=== PATIENT | male | born 1940 | race Caucasian/White ===

== ENCOUNTER 2018-05-26 08:13 | Emergency (ER) | payer MEDICARE ==
[~2018-05-26] VITALS: Ht 165.1 cm; Wt 75.0 kg
[2018-05-26 08:23] VITALS: Ht 165.1 cm; Wt 75.0 kg
[2018-05-26 09:18] LABS: ALBUMIN 3.6 g/dL (3.4-5.0); ALKALINE PHOSPHATASE 82 U/L (46-116); ALT (SGPT) 26 U/L (10-68); BILIRUBIN - TOTAL 0.71 mg/dL (0.2-1.3); CALC OSMOLALITY 284 mosm/kg (275-300); CARBON DIOXIDE 26.9 mmol/L (21.0-32.0); CHLORIDE - SERUM 106 mmol/L (98-107); CREATINE KINASE 54 UL (21-232); CREATININE - SERUM 1.2 mg/dL (0.6-1.3); GLUCOSE 97 mg/dL (74-106); INR 1.07 (0.85-1.17); MAGNESIUM - SERUM 2.1 mg/dL (1.8-2.4); POTASSIUM - SERUM 3.7 mmol/L (3.5-5.1); PROTEIN - SERUM 7.5 g/dL (6.4-8.2); PROTIME 13.4 SECONDS (11.6-15.0); SODIUM 142 mmol/L (136-145); UREA NITROGEN 18 mg/dL (7-18); eGFR NON AFRICAN AMERICAN 63 mL/min (90-120)
[2018-05-26 09:19] LABS: APTT 27.8 SECONDS (22.8-39.4)
[2018-05-26 09:44] LABS: CKMB 1.8 U/L (0.0-3.6); TROPONIN-I < 0.017 ng/mL (0.000-0.060)
[2018-05-26 09:59] LABS: BASOPHILS 0.6 % (0-2); EOSINOPHILS 3.6 % (0-7); HEMATOCRIT 48.5 % (42.0-54.0); HEMOGLOBIN 16.6 g/dL (13.5-17.5); IMMATURE GRANULOCYTES 0.5 % (0-5); LYMPHOCYTES 26.3 % (15-50); MCH 31.2 pg (26.0-34.0); MCHC 34.2 g/dL (31.0-37.0); MCV 91.2 fL (80.0-100.0); MEAN PLATELET VOLUME 9.4 fL (7.4-10.4); MONOCYTES 6.3 % (2-11); NEUTROPHILS 62.7 % (40-80); PLATELET COUNT 235 10x3/uL (130-400); RBC 5.32 10x6/uL (4.20-6.10); RDW 13.4 % (11.5-14.5); WBC 6.4 10x3/uL (4.8-10.8)
[2018-05-26 10:57] VITALS: BP 136/67
== END 2018-05-26 10:44 | disposition home or self-care (01) ==
LOC: D.ER 08:13
PROVIDERS: Emergency Medicine
DX: R07.9 Chest pain, unspecified (principal)

== ENCOUNTER 2018-06-04 08:35 | Outpatient (CLI) | payer MEDICARE, OTHER ==
[~2018-06-04] VITALS: Ht 165.1 cm; Wt 75.0 kg
--- NOTE | ~2018-06-04 | HEMODYNAMI ---
PATIENT:CLAU SALEH MEDICAL RECORD: [id number] : 42 LOCATION:[facility] ADMISSION DATE: 06/04/18 Generatedon:06/04/201811:01 Patient name: CLAU SALEH Patient #: [id number] SSN: : [id number] Date of study: 06/04/2018 Page: Of Hemodynamic Procedure Report Patient Data Patient Demographics Procedure consent was obtained First Name: CLAU Gender: Male Last Name: DELFINO Suffix: Jr Olimpia Initial: SEVERO : 1940 Patient #: [id number] Age: 77 year(s) Race: Unknown Additional ID: [id number] Contact details Address: [place] [address] State: [place] City: [place] Zip code: [address] Past Medical History Allergies: No known allergies Admission Admission Data Admission Date: 06/04/2018 Admission Time: 8:35 Procedure Procedure Types Cath Procedure Diagnostic Procedure LHC LHC w/Coronaries FFR/IVUS Intra-Coronary IVUS Initial PCI Procedure Coronary Stent Coronary Stent Initial x2 Peripheral Cath Diagnostic Procedure Desk Pens Assembler Peripheral Procedures Four Vessel Arteriogram Procedure Description Procedure Date Procedure Date: 06/04/2018 Procedure Start Time: 10:38 Procedure End Time: 10:57 Procedure Staff Name Function Liborio Latham MD Performing Physician Everette Whyte RT Monitor Hilary Dickinson RT Scrub David Egan RN Nurse Procedure Data Cath Procedure Fluoroscopy Diagnostic fluoroscopy Total fluoroscopy Time: 4.7 time: 4.7 min min Diagnostic fluoroscopy Total fluoroscopy dose: 651 dose: 651 mGy mGy Contrast Material Contrast Material Type Amount (ml) Isovue 300 0 Isovue 370 114 Entry Location Entry Primary Successful Side Size Upsize Upsize Entry Closure Succes sful Closure Location (Fr) 1 (Fr) 2 (Fr) Remarks Device Remarks Femoral Right 5 Fr 6 Fr Exoseal artery Short Diagnostic catheters Device Type Used For End Catheter Placement MULTIPACK Pigtail 5 Fr LV Angiography catheter MULTIPACK JL 4.0 5Fr Left Coronary catheter Angiography MULTIPACK 3DRC 5Fr Right Coronary catheter Angiography Procedure Complications No complications Procedure Medications Medication Administration Route Dosage 0.9% NaCl I.V. 100 ml/hr Oxygen etCO2 Nasal cannula 2 l/min Heparin Flush Bag added to field 2 bags (1000units/500ml NS) Lidocaine 2% added to field 20 Versed I.V. 1 mg Fentanyl I.V. 50 mcg Heparin Bolus I.V. 4000 units Integrilin (Bolus I.V. 6.8 ml 2mg/ml) Integrilin (Bolus wasted 3.2 ml 2mg/ml) Plavix P.O. 600 mg Hemodynamics Rest Heart Rate: 51 (bpm) Snapshots Pre Cath Intra NCS Post Cath Vital Signs Time Heart Resp SPO2 etCO2 NIBP (mmHg) Rhythm Pain Sedation Rate (ipm) (%) (mmHg) Status Level (bpm) 10:19:29 51 12 99 0 130/70(116) NSR 0 (11) 10(A) , No pain 10:23:45 49 12 96 36.7 113/64(88) NSR 0 (11) 10(A) , No pain 10:27:59 48 11 96 0 102/60(81) NSR 0 (11) 10(A) , No pain 10:32:09 48 11 96 2.9 111/61(78) NSR 0 (11) 10(A) , No pain 10:36:23 45 14 96 0 104/60(84) NSR 0 (11) 10(A) , No pain 10:40:33 46 12 97 33.7 101/61(80) NSR 0 (11) 9(A) , No pain 10:44:41 47 12 96 30.7 113/61(77) NSR 0 (11) 9(A) , No pain 10:48:49 48 11 96 16.4 106/58(78) NSR 0 (11) 10(A) , No pain 10:52:57 54 12 97 17.9 123/72(98) NSR 0 (11) 10(A) , No pain 10:57:08 57 12 97 22.4 121/70(95) NSR 0 (11) 10(A) , No pain Medications Time Medication Route Dose Verified Delivered Reason Notes Effectiveness by by 10:20:49 0.9% NaCl I.V. 100 David David Per physician ml/hr Jignesh Egan RN RN 10:21:03 Oxygen etCO2 2 David David for low 02 sats Nasal l/min Jignesh Egan cannula RN RN 10:22:08 Heparin Flush added 2 David David used for Bag to bags Jignesh Egan procedure (1000units/500ml field RN RN NS) 10:22:17 Lidocaine 2% added 20ml David David for local to vial Jignesh Egan anesthetic field RN RN 10:36:28 Versed I.V. 1 mg David David for sedation Jignesh Egan RN RN 10:36:40 Fentanyl I.V. 50 David David for sedation mcg Jignesh Egan RN RN 10:46:54 Heparin Bolus I.V. 4000 David David for units Jignesh Egan anticoagulation RN RN 10:47:09 Integrilin I.V. 6.8 David David for (Bolus 2mg/ml) ml Jignesh Egan antiplatelet RN RN therapy 10:47:18 Integrilin wasted 3.2ml David David to sharp's (Bolus 2mg/ml) Jignesh Egan RN RN 10:56:24 Plavix P.O. 600 David David for mg Jignesh Egan antiplatelet RN RN therapy Procedure Log Time Note 10:02:25 Everette MILLS(R) sent for patient. Start room use. 10:02:26 Time tracking: Regular hours (M-F 7:00 - 5:00) 10:02:30 Plan of Care:Hemodynamics will remain stable., Cardiac rhythm will remain stable., Comfort level will be maintained., Respiratory function will remain adequate., Patient/ family verbilizes understanding of procedure., Procedure tolerated without complication., Recovers from procedure without complications.. 10:14:47 Patient received from Pre/Post Procedure Room to CCL 1 Alert and oriented. Tansferred to table in Supine position. 10:14:49 Warm blankets applied, and judi hugger turned on for patient comfort. 10:14:49 Correct patient and procedure confirmed by team. 10:14:50 Signed procedure consent form obtained from patient. 10:14:52 ECG and BP/O2 sat monitors applied to patient. 10:18:27 Baseline sample Acquired. 10:18:27 Vital chart was started 10:18:34 Rhythm: sinus rhythm 10:18:35 Baseline sample Acquired. 10:18:39 Full Disclosure recording started 10:18:55 H&P Date Dictated: 05/27/2018 Within 30 days and on chart., H&P Addendum completed by physician on day of procedure. (MUST COMPLETE FOR ALL OUTPATIENTS). 10:18:55 Pre-procedure instructions explained to patient. 10:18:56 Pre-op teaching completed and patient verbalized understanding. 10:18:57 Family in waiting room. 10:18:59 Patient NPO since Midnight. 10:19:07 Patient allergic to No known allergies 10:19:10 Is the patient allergic to Iodine/contrast media? No. 10:19:13 Was the patient premedicated? No 10:19:15 Patient diabetic? No. 10:19:16 ----Pre-sedation anethsthesia assessment.---- 10:19:18 Previous problem with sedation/anesthesia? No ? 10:19:20 Snore? Yes 10:19:21 Sleep apnea? No 10:20:07 Deviated septum? No 10:20:09 Opens mouth fully? Yes 10:20:11 Sticks out tongue? Yes 10:20:20 Dentures? Yes out at home 10:20:21 Airway obstruction? No ? 10:20:26 Pre procedure: right dorsailis pedis pulse 2+ Normal; easily identifiable; not easily obliterated 10:20:30 Patient pain scale 0/10 ?. 10:20:34 IV patent on arrival in left antecubital with 0.9% NaCl at 10ml/hr. 10:20:49 0.9% NaCl 100 ml/hr I.V. was administered by David Egan RN; Per physician; 10:20:49 Lab results completed and on chart. 10:20:52 Right groin area was prepped with chlora-prep and draped in sterile fashion 10:20:53 Alarms reviewed by R. N. 10:20:53 Sharps counted by scrub and verified by R.N. 10:21:03 Oxygen 2 l/min etCO2 Nasal cannula was administered by David Egan RN; for low 02 sats; 10:22:08 Heparin Flush Bag (1000units/500ml NS) 2 bags added to field was administered by David Egan RN; used for procedure; 10:22:17 Lidocaine 2% 20ml vial added to field was administered by David Egan RN; for local anesthetic; 10:26:08 Physician paged 10:26:15 Use device set Femoral Dx 10:26:16 ACIST Syringe (81606) opened to sterile field. 10:26:17 Bag Decanter (2002S) opened to sterile field. 10:26:17 Medline Cath Pack ([id number]) opened to sterile field. 10:26:17 DIAGNOSTIC WIRE .035 260cm J wire (603521) opened to sterile field. 10:26:19 ACIST Hand Control (83013) opened to sterile field. 10:26:19 ACIST Manifold (73703) opened to sterile field. 10:26:19 DIAGNOSTIC Multipack 5Fr catheter set (FX8626) opened to sterile field. 10:26:20 Tegaderm 4 x 4 (1626W) opened to sterile field. 10:26:22 SHEATH 5FR [place] (XQX495) opened to sterile field. 10:30:50 Baseline sample Acquired. 10:35:32 Zero performed for pressure channel P1 10:36:05 Physician arrived 10:36:06 --------ALL STOP TIME OUT------ 10:36:06 Final Timeout: patient, procedure, and site verified with staff and physician. All members of the team are in agreement. 10:36:08 Right groin site verified by team. 10:36:11 Maximum allowable Isovue 300 dose 300ml. Physician notified. (300ml for normal creatinines. For patients with creatinine of 1.7 or higher multiply weight(kg) x 5 divided by creatinine.) 10:36:15 Fire Safety Assessment: A--An alcohol-based skin anteseptic being used preoperatively., C--Open oxygen or nitrous oxide is being used., D--An ESU, laser, or fiber-optic light is being used. 10:36:19 Physical assessment completed. ASA score P 2 - A patient with mild systemic disease as per Liborio Latham MD. 10:36:22 Sedation plan: IV Moderate Sedation Medication:Versed, Fentanyl 10:36:28 Versed 1 mg I.V. was administered by David Egan RN; for sedation; 10:36:40 Fentanyl 50 mcg I.V. was administered by David Egan RN; for sedation; 10:38:04 Procedure started. 10:38:11 Local anesthetic to right femoral artery with Lidocaine 2% by Liborio Latham MD.INITIAL ACCESS ONLY 10:38:18 A 5 Fr sheath was inserted into the Right Femoral artery 10:39:20 A MULTIPACK Pigtail 5 Fr catheter was advanced over the wire and used for LV Angiography. 10:39:24 LV angiography performed. 10:39:25 LV gram done using ANDERSON 10:40:05 EF : 55 % 10:40:08 Catheter removed. 10:40:15 A MULTIPACK JL 4.0 5Fr catheter was advanced over the wire and used for Left Coronary Angiography. 10:40:18 LCA angiography performed. 10:41:19 Catheter removed. 10:41:25 A MULTIPACK 3DRC 5Fr catheter was advanced over the wire and used for Right Coronary Angiography. 10:41:41 Procedure type changed to Cath procedure, Diagnostic procedure, LHC, LHC w/Coronaries, FFR/IVUS, Intra-Coronary IVUS Initial, PCI procedure, Coronary Stent, Coronary Stent Initial x2, Peripheral Cath Diagnostic Procedure, Desk Pens Assembler Peripheral Procedures, Four Vessel Arteriogram 10:41:46 RCA angiography performed. 10:41:54 Left carotid angiography performed. 10:41:56 Left subclavian angiography performed 10:41:58 Right carotid angiography performed. 10:41:59 Right subclavian angiography performed 10:42:38 Catheter removed. 10:46:54 Heparin Bolus 4000 units I.V. was administered by David Egan RN; for anticoagulation; 10:47:09 Integrilin (Bolus 2mg/ml) 6.8 ml I.V. was administered by David Egan RN; for antiplatelet therapy; 10:47:18 Integrilin (Bolus 2mg/ml) 3.2ml wasted was administered by David Egan RN; to sharp's; 10:47:32 GUIDE 6FR XBLAD 3.5 catheter ([id number]) opened to sterile field. 10:47:32 CHOICE PT Extra Support 182cm wire ([id number]) opened to sterile field. 10:47:33 INFLATOR Merit BasixCompak (MR9984) opened to sterile field. 10:47:34 [place] IVUS Catheter (64752M) opened to sterile field. 10:47:34 SHEATH 6FR [place] (AQN997) opened to sterile field. 10:47:47 Sheath upsized to a 6 Fr Short. 10:47:55 6 Fr XBLAD 3.5 guide catheter was inserted over the wire 10:47:59 CPTES wire advanced. 10:48:02 FFR/IVUS 10:48:03 IVUS catheter advanced over wire. 10:48:04 IVUS pass to LMCA lesion performed. 10:52:21 IVUS catheter removed over wire. 10:53:16 Place stent Inflation Number: 1 A LISA RX 3.0 x 18 stent ([id number]) was prepped and advanced across the Prox LAD. The stent was deployed at 17 LETITIA for 0:10 (min:sec). 10:53:26 Stent catheter was removed intact over wire. 10:53:56 Place stent Inflation Number: 1 A LISA RX 4.0 x 12 stent ([id number]) was prepped and advanced across the LMCA. The stent was deployed at 15 LETITIA for 0:12 (min:sec). 10:55:02 Stent catheter was removed intact over wire. 10:55:02 Wire removed. 10:55:05 Guide catheter removed. 10:55:28 Contrast amount:Isovue 300 0ml. 10:55:31 Contrast amount:Isovue 370 114ml. 10:55:38 Sheath removed intact; hemostasis achieved with Exoseal to the Right Femoral artery. 10:55:48 EXOSEAL 6Fr (EX600) opened to sterile field. 10:55:51 Procedure ended.(Physican Out) 10:56:04 Fluoroscopy time 04.70 minutes. 10:56:10 Fluoroscopy dose: 651 mGy 10:56:10 Flurop Dose total: 651 10:56:12 Sharps counted by scrub and verified by R.N. 10:56:13 Insertion/operative site no bleeding no hematoma. 10:56:15 Post-op/insertion site Right Femoral artery dressed using a 4 x 4 and Tegaderm. 10:56:19 Post right femoral artery:stable 10:56:20 Post Procedure Pulses reassessed and unchanged 10:56:22 Post procedure: right dorsailis pedis pulse 1+ Palpable, but thready & weak; easily obliterated. 10:56:24 Plavix 600 mg P.O. was administered by David Egan RN; for antiplatelet therapy; 10:56:25 Post procedure rhythm: sinus rhythm 10:56:26 Post procedure instruction explained to patient.Patient verbalizes understanding. 10:56:27 Procedure and supply charges have been captured, reviewed, submitted and are correct. 10:56:58 Procedure Complication : No complications 10:57:00 Vital chart was stopped 10:57:01 See physician's report for complete and final results. 10:57:03 Report given to Pre/Post Procedure Room. 10:57:06 Patient transfered to Pre/Post Procedure Room with Stretcher. 10:57:08 Procedure ended. 10:57:08 Full Disclosure recording stopped 10:57:14 ACC-PCI Only Patient was given prescriptions, or instructed by Liborio Latham MD to start/continue the following medications upon discharge: Plavix 10:57:15 End room use (Document Last) Intervention Summary Intervention Notes Time ActionType Lesion and Equipment Used Action# Pressure Duration Attributes 10:53:16 Place stent Prox LAD LISA RX 3.0 x 1 17 00:10 18 stent ([id number]) 10:53:56 Place stent LMCA LISA RX 4.0 x 1 15 00:13 12 stent ([id number]) Device Usage Item Name Manufacture Quantity Catalog Number Hospital Part Current M inimal Lot# / Charge Number Stock Stock Serial# Code ACIST Syringe Acist 1 25722 440230 118805 022084 2 0 (60005) Medical Systems Inc Bag Decanter Microtek 1 385024 54563 004359 5 () Medical Inc. Medline Cath Medline 1 [id number] 665876 11738 151697 5 Pack ([id number]) DIAGNOSTIC St Dave 1 688530 948398 623343 151131 3 0 WIRE .035 260cm J wire (890113) ACIST Hand Acist 1 09074 127671 075287 091909 5 Control Medical (59169) Systems Inc ACIST Manifold Acist 1 61857 534617 090532 776109 5 (40160) Medical Systems Inc DIAGNOSTIC Cardinal 1 LY6498 425041 79559 729097 3 0 Multipack 5Fr Health catheter set (TZ5936) Tegaderm 4 x 4 3M 1 1626W 224245 333268 882316 5 (1626W) SHEATH 5FR Terumo 1 LHB529 990916 631363 722551 5 [place] (UTB174) MULTIPACK Cardinal 1 629079 5 Pigtail 5 Fr Health catheter MULTIPACK JL Cardinal 1 366220 5 4.0 5Fr Health catheter MULTIPACK 3DRC Cardinal 1 286782 5 5Fr catheter Health GUIDE 6FR Cardinal 1 [id number] 260344 787729 849835 1 0 XBLAD 3.5 Health catheter ([id number]) CHOICE PT [place] 1 [id number] 916660 388477 150749 5 Extra Support Scientific 182cm wire ([id number]) INFLATOR Merit Merit 1 ZE0772 450492 837752 610795 1 5 [facility] (GP9946) [place] 1 12558R 273390 811866 025913 8 [place] IVUS Catheter (70627J) SHEATH 6FR Terumo 1 EKR476 376052 606220 176511 4 0 [place] (KJF530) LISA RX 3.0 x Medtronic 1 [id number] 422569 0652210 878898 5 [id number] 18 stent ([id number]) LISA RX 4.0 x Medtronic 1 [id number] 179757 6614158 252726 5 [id number] 12 stent ([id number]) EXOSEAL 6Fr Cardinal 1 EX600 567080 290472 814400 1 0 (EX600) Health Signature Audit [place] Stage Time Signature Unsigned Intra-Procedure 06/04/2018 Everette Whyte RT(R) 11:01:35 AM Signatures Monitor : Everette Whyte RT Signature : Date : Time : [facility] [address] [place] [address]
[2018-06-04 09:03] VITALS: BP 134/62; Ht 165.1 cm; Wt 75.0 kg
[2018-06-04 09:07] LABS: HEMATOCRIT 49.3 % (42.0-54.0); MCH 31.4 pg (26.0-34.0); MCHC 34.5 g/dL (31.0-37.0); MEAN PLATELET VOLUME 8.6 fL (7.4-10.4); NEUTROPHILS 66.2 % (40-80); PLATELET COUNT 190 10x3/uL (130-400); RBC 5.42 10x6/uL (4.20-6.10); RDW 13.6 % (11.5-14.5); WBC 6.6 10x3/uL (4.8-10.8)
[2018-06-04 09:14] LABS: ANION GAP 12.4 mmol/L (8-16); CALCIUM 8.6 mg/dL (8.5-10.1); CARBON DIOXIDE 24.9 mmol/L (21.0-32.0); CREATININE - SERUM 1.2 mg/dL (0.6-1.3); POTASSIUM - SERUM 4.3 mmol/L (3.5-5.1)
[2018-06-04] MEDS ORDERED: PLAVIX75 MG PO (11:17)
[2018-06-04] MEDS ORDERED: BAYER CHEWABLE81 MG PO (11:17)
--- NOTE | 2018-06-04 11:20 | NUR ---
RECIEVED TO ROOM VIA STRETCHER FROM FITTER UP WITH 6 FR EXOSEAL R/GROIN CDI NO BLEEDING OR HEMATOMA NOTED. PATIENT CONNECTED TO MONITOR FOR OBSERVATION WITH HR 51 BP 125/65. CHEST PAIN IS DENIED INSTRUCTED PATIENT TO KEEP HEAD FLAT ON PILLOW WITH RLE STRAIGHT
--- NOTE | 2018-06-04 11:28 | NUR ---
PATIENT RESTING QUIETLY NO DISTRESS 6 FR EXOSEAL R/GROIN IS CDI WITH NO BLEEDING OR HEMATOMA NOTED. VSS
--- NOTE | 2018-06-04 11:46 | NUR ---
PATIENT CONTINUES TO REST WITH EYES CLOSED. RESPIRATIONS ARE EVEN AND UNLABORED. 6 FR EXOSEAL R/GROIN REMAINS CDI
--- NOTE | 2018-06-04 11:58 | NUR ---
DR BEASLEY AT BEDSIDE WITH PATIENT
--- NOTE | 2018-06-04 12:21 | NUR ---
6 FR EXOSEAL R/GROIN REMAINS CDI WITH CHEST PAIN DENIED. VSS
--- NOTE | 2018-06-04 13:06 | NUR ---
PATIENT ALERT AND ORIENTED WITH CHEST PAIN DENIED 6 FR EXOSEAL R/GROIN IS CDI NO BLEEDING OR HEMATOMA NOTED. PATIENT VOIDS 400 CC CLEAR YELLOW URINE TO COLLECTION
--- NOTE | 2018-06-04 13:26 | NUR ---
PATIENT TOLERATING SIPS OF PO FLUIDS WITH NAUSEA DENIED
--- NOTE | 2018-06-04 14:03 | NUR ---
RIGHT GROIN DRESSING C/D/I. NO S/S OF HEMATOMA NOTED. RIGHT PEDAL PULSE PRESENT. HEAD OF BED INC TO 30 DEGREES. TOLERATED WELL. NO OTHER NEEDS AT THIS TIME.
--- NOTE | 2018-06-04 14:30 | NUR ---
LEFT ARM PIV D/C'D WITH CATH TIP INTACT. PT TOLERATED WELL. INSTRUCTED TO GET UP AND DRESSED. PT'S AT BEDSIDE TO ASSIST. RIGHT GROIN DRESSING C/D/I. NO S/S OF HEMATOMA NOTED.
--- NOTE | 2018-06-04 14:45 | NUR ---
DISCUSSED DISCHARGE INSTRUCTIONS WITH PT AND PT'S FAMILY. THEY VOICED UNDERSTANDING. DR. BEASLEY SPOKE WITH PT AND PT'S FAMILY AGAIN. RIGHT GROIN DRESSING C/D/I. NO S/S OF HEMATOMA NOTED.
--- NOTE | 2018-06-04 14:51 | NUR ---
PT VOIDED IN URINAL PRIOR TO DISCHARGE. TAKEN OUT TO VEHICLE BY WHEELCHAIR. NO S/S OF DISTRESS NOTED. ALL BELONGINGS AND PAPERWORK IN HAND.
--- NOTE | 2018-06-04 15:13 | OP ---
PATIENT NAME: CLAU SALEH MEDICAL RECORD: [id number] :41 LOCATION:D.CAT ADMISSION DATE: SURGEON: JUSTO BEASLEY MD DATE OF OPERATION: 06/04/2018 PROCEDURES: 1. PTCA stent left main. 2. PTCA stent LAD. 3. Intravascular ultrasound of left main. 4. Intravascular ultrasound of the LAD. 5. Left heart catheterization. 6. Selective coronary angiography. 7. Left ventriculogram. 8. Four-vessel carotid vertebral angiography. INDICATION: Syncope, angina, and coronary artery disease. PROCEDURE IN DETAIL: After informed consent was obtained and after a detailed description of risks, benefits as well as alternative therapies, the patient elected to proceed with angiogram and angioplasty. The right femoral area was prepped and draped in normal sterile fashion. Right femoral artery was cannulated via modified Seldinger technique with placement of 6-Georgian sheath. All catheters exchanged through this sheath. FINDINGS: There was subselection of each subclavian as well as the left carotid. RIGHT SIDE: The common internal and external carotids as well as vertebral have mild irregularities, but no flow-limiting stenosis. LEFT SYSTEM: The common internal and external carotid as well as vertebral have mild irregularities, but no flow-limiting stenosis. Left ventriculogram was performed in standard 30-degree ANDERSON view, reveals good cardiac wall motion throughout all segments. Overall ejection fraction estimated 60%. SELECTIVE CORONARY ANGIOGRAPHY: 1. Left main is with greater than 80% stenosis confirmed by intravascular ultrasound. 2. Left anterior descending has 80% stenosis in the proximal vessel. 3. The left circumflex has moderate irregularities, but no flow-limiting stenosis. 4. Right coronary artery has moderate irregularities, but no flow-limiting stenosis. PTCA STENT OF THE LAD AND LEFT MAIN: The LAD was addressed with a 3.0 x 18 mm Jluis and the left main with a 4.0 x 12 mm Enid. Result was 0% residual stenosis. OVERALL IMPRESSION: Successful percutaneous transluminal coronary angioplasty stent of the left main and left anterior descending, both going from 80% initial stenosis to 0% residual. TRANSINT:[id number] Voice Confirmation ID: [id number] DOCUMENT ID: [id number] OPERATIVE REPORT [id number] CLAU SALEH JUSTO BEASLEY MD at 9699 CC: [id number] DICTATION DATE: 06/04/18 1059 MANUFACTURING TECHNOLOGIST: 06/04/18 1228 DEP CLI 06/04/18 [place] [id number] [place] [id number]
== END 2018-06-04 14:50 | disposition home or self-care (01) ==
LOC: D.CATH 08:35
PROVIDERS: ATTEND Internal Medicine Interventional Cardiology
DX: I25.119 Atherosclerotic heart disease of native coronary artery with unspecified angina pectoris (principal); R55 Syncope and collapse; Z01.812 Encounter for preprocedural laboratory examination
CPT/HCPCS: 93458; 92978; 92979; C9600 ×2; 36222; 36225

== ENCOUNTER 2019-01-19 11:10 | Outpatient (CLI) | payer MEDICARE, OTHER ==
[~2019-01-19] VITALS: Ht 165.1 cm; Wt 75.0 kg
[2019-01-19] VITALS (10 sets, daily range): BP systolic 90–140; BP diastolic 48–70; Ht 165.1 cm; Wt 75.0 kg
--- NOTE | ~2019-01-19 | HEMODYNAMI ---
PATIENT:CLAU SALEH MEDICAL RECORD: [id number] : 42 LOCATION:[facility] D.2120 ADMISSION DATE: 01/19/19 Generatedon:01/19/201914:42 Patient name: CLAU SALEH Patient #: [id number] SSN: [id number] : 1940 Date of study: 01/19/2019 Page: Of Hemodynamic Procedure Report Patient Data Patient Demographics Procedure consent was obtained First Name: CLAU Gender: Male Last Name: DELFINO Suffix: Jr Olimpia Initial: SEVERO : 1940 Patient #: [id number] Age: 78 year(s) Race: SSN: [id number] Additional ID: [id number] Contact details Address: [address] [place] [address] State: [place] City: [place] Zip code: [address] Past Medical History History of disease Date Diagnosis Comments CAD Allergies: No known allergies Admission Admission Data Admission Date: 01/19/2019 Admission Time: 12:40 Admit Source: Emergency department Room #: D.0 Height (in.): 65 BSA: 1.82 (m2) Height (cm.): 165.1 BMI: 27.51 (kg/m2) Weight (lbs.): 165.35 Weight (kg.): 75 Lab Results Lab Result Date: 01/19/2019 Lab Result Time: 0:00 Biochemistry Name Units Result Min Max BUN mg/dl 12 --(-*--)-- 7 18 Creatinine mg/dl 1.1 --(--*-)-- 0.6 1.3 eGFR ml/min 69 *-(----)-- 90 120 NONAFRICAN CBC Name Units Result Min Max Hematocrit % 48.5 --(--*-)-- 42 54 Hemoglobin g/dl 16.5 --(--*-)-- 13.5 17.5 Procedure Procedure Types Cath Procedure Diagnostic Procedure C [facility] w/Coronaries FFR/IVUS FFR Initial Sedation Charges Moderate Sedation up to 15 minutes PCI Procedure Coronary Stent Coronary Stent Initial Procedure Description Procedure Date Procedure Date: 01/19/2019 Procedure Start Time: 14:19 Procedure End Time: 14:38 Procedure Staff Name Function Liborio Latham MD Performing Physician Jaimie Rojas RT Monitor Francisca Dunlap RT Scrub Dora Dominique RN Nurse David Egan RN Manufacturing Intern Lu Reich RT Monitor Procedure Data Cath Procedure Fluoroscopy Diagnostic fluoroscopy Total fluoroscopy Time: 5.2 time: 5.2 min min Diagnostic fluoroscopy Total fluoroscopy dose: 701 dose: 701 mGy mGy Contrast Material Contrast Material Type Amount (ml) Isovue 300 85 Entry Location Entry Primary Successful Side Size Upsize Upsize Entry Closure Succes sful Closure Location (Fr) 1 (Fr) 2 (Fr) Remarks Device Remarks Femoral Right 5 Fr Exoseal artery Estimated blood loss: 10 ml Diagnostic catheters Device Type Used For End Catheter Placement MULTIPACK Pigtail 5 Fr Procedure catheter MULTIPACK JL 4.0 5Fr Procedure catheter MULTIPACK 3DRC 5Fr Procedure catheter Procedure Complications No complications Procedure Medications Medication Administration Route Dosage 0.9% NaCl I.V. 100 ml/hr Oxygen etCO2 Nasal cannula 2 l/min Lidocaine 2% added to field 20 Heparin Flush Bag added to field 2 bags (1000units/500ml NS) Versed I.V. 2 mg Fentanyl I.V. 50 mcg Heparin Bolus I.V. 4000 units Integrilin (Bolus I.V. 6.8 ml 2mg/ml) Integrilin (Bolus wasted 3.2 ml 2mg/ml) Hemodynamics Rest BSA: 1.82 (m2) HGB: 16.5 (g/dl) O2 Consumption: Estimated: 200.31 (ml/min) O2 Co nsumption indexed: Estimated:110.06 (ml/min/m) Heart Rate: 58 (bpm) Snapshots Pre Cath Intra NCS Post Cath Vital Signs Time Heart Resp SPO2 etCO2 NIBP (mmHg) Rhythm Pain Sedation Rate (ipm) (%) (mmHg) Status Level (bpm) 13:56:46 59 14 98 31.7 136/78(115) SB 0 (11) 10(A) , No pain 14:01:02 58 17 98 29.4 124/71(97) SB 0 (11) 10(A) , No pain 14:05:12 55 16 95 0 121/73(92) SB 0 (11) 10(A) , No pain 14:09:24 53 13 96 0 118/63(81) SB 0 (11) 10(A) , No pain 14:13:36 54 14 96 0 117/60(86) SB 0 (11) 10(A) , No pain 14:18:35 51 14 96 25.7 Measuring SB 0 (11) 10(A) , No pain 14:18:37 51 14 96 25.7 108/63(75) SB 0 (11) 9(A) , No pain 14:22:47 61 14 96 20.4 113/56(94) NSR 0 (11) 9(A) , No pain 14:26:56 53 14 96 11.3 110/63(78) SB 0 (11) 9(A) , No pain 14:31:06 53 13 96 5.2 102/58(75) SB 0 (11) 9(A) , No pain 14:35:12 54 14 97 28.7 112/61(89) SB 0 (11) 10(A) , No pain Medications Time Medication Route Dose Verified Delivered Reason Notes Effectiveness by by 13:55:44 0.9% NaCl I.V. 100 Liborio Dora used for ml/hr Noa Dominique mechanical engineering coop 13:55:51 Oxygen etCO2 2 Liborio Dora used for Nasal l/min Noa Domiinque procedure cannula RN 13:55:56 Lidocaine 2% added 20ml Liboriodorota Capone for local to vial Noa Latham MD anesthetic field 13:55:59 Heparin Flush added 2 Liborio Liborio used for Bag to bags Noa Latham MD procedure (1000units/500ml field NS) 14:16:09 Versed I.V. 2 mg Liborio Dora for sedation Noa Dominique RN 14:16:13 Fentanyl I.V. 50 Liborio Dora for sedation mcg Noa Dominique RN 14:31:44 Heparin Bolus I.V. 4000 Liborio Dora for verif ied units Noa Dominique anticoagulation with Dr. CHARBEL Latham 14:31:56 Integrilin I.V. 6.8 Liborio Dora for (Bolus 2mg/ml) ml Noa Dominique antiplatelet RN therapy 14:32:15 Integrilin wasted 3.2 Liborio John for (Bolus 2mg/ml) cheikh Dominique antiplatelet RN therapy Procedure Log Time Note 13::38 Informed consent obtained and on chart 13:32:23 David Egan RN sent for patient. Start room use. 13:32:38 Procedure Status Elective Heart Cath (OP). 13:32:40 Time tracking: Regular hours (M-F 7:00 - 5:00) 13:32:42 Plan of Care:Hemodynamics will remain stable., Cardiac rhythm will remain stable., Comfort level will be maintained., Respiratory function will remain adequate., Patient/ family verbilizes understanding of procedure., Procedure tolerated without complication., Recovers from procedure without complications.. 13:32:46 H&P Date Dictated: 01/19/2019 New H&P dictated by physician.. 13:32:52 Patient allergic to No known allergies 13:34:23 Admit Source: Emergency department 13:34:25 Patient Weight : 165.35 lbs 13:34:31 Patient Height : 65 inches 13:34:59 Lab Result : eGFR NONAFRICAN 69 ml/min 13:34:59 Lab Result : Hemoglobin 16.5 g/dl 13:34:59 Lab Result : BUN 12 mg/dl 13:34:59 Lab Result : Creatinine 1.1 mg/dl 13:34:59 Lab Result : Hematocrit 48.5 % 13:49:25 Patient received from ED to CCL 2 Alert and oriented. Tansferred to table in Supine position. 13:49:26 Warm blankets applied, and judi hugger turned on for patient comfort. 13:49:27 Correct patient and procedure confirmed by team. 13:49:27 ECG and BP/O2 sat monitors applied to patient. 13:55:35 Vital chart was started 13:55:44 0.9% NaCl 100 ml/hr I.V. was administered by Dora Dominique RN; used for procedure; Verbal order read back and verified. 13:55:51 Oxygen 2 l/min etCO2 Nasal cannula was administered by Dora Dominique RN; used for procedure; Verbal order read back and verified. 13:55:56 Lidocaine 2% 20ml vial added to field was administered by Liborio Latham MD; for local anesthetic; Verbal order read back and verified. 13:55:59 Heparin Flush Bag (1000units/500ml NS) 2 bags added to field was administered by Liborio Latham MD; used for procedure; Verbal order read back and verified. 13:57:42 Baseline sample Acquired. 13:57:46 Rhythm: sinus bradycardia 13:57:47 Full Disclosure recording started 13:57:48 Pre-procedure instructions explained to patient. 13:57:48 Pre-op teaching completed and patient verbalized understanding. 13:57:52 Family in patients room. 13:57:54 Patient NPO since Midnight. 13:57:57 Is the patient allergic to Iodine/contrast media? No. 13:58:08 PATIENT PRELOADED ON PLAVIX 13:58:10 Patient diabetic? No. 13:58:13 Previous problem with sedation/anesthesia? No ? 13:58:14 Snore? Yes 13:58:16 Sleep apnea? No 13:58:17 Deviated septum? No 13:58:17 Opens mouth fully? Yes 13:58:19 Sticks out tongue? Yes 13:58:21 Airway obstruction? No ? 13:58:23 Dentures? No ? 13:58:25 Pre procedure: right dorsailis pedis pulse 1+ Palpable, but thready & weak; easily obliterated 13:58:28 Patient pain scale 0/10 ?. 13:58:32 IV patent on arrival in left hand with 0.9% NaCl at [facility]. 13:58:34 Lab results completed and on chart. 13:58:38 Right groin area was prepped with chlora-prep and draped in sterile fashion 13:58:39 Alarms reviewed by R. N. 13:58:39 Sharps counted by scrub and verified by R.N. 14:02:12 Risk of Mortality: .1 14:02:15 Risk of blood transfusion: 1.5 14:02:18 Risk of ELISA: 1.7 14:02:22 Use device set Femoral Dx 14:02:23 ACIST Syringe (48153) opened to sterile field. 14:02:24 Bag Decanter () opened to sterile field. 14:02:25 ACIST Hand Control (02897) opened to sterile field. 14:02:25 ACIST Manifold (14738) opened to sterile field. 14:02:26 Tegaderm 4 x 4 (1626W) opened to sterile field. 14:02:29 Medline Cath Pack ([id number]) opened to sterile field. 14:02:30 DIAGNOSTIC Multipack 5Fr catheter set (SV8267) opened to sterile field. 14:02:30 SHEATH 5FR Ashley (JHJ529) opened to sterile field. 14:02:31 EMERALD Guide Wire (824-539) opened to sterile field. 14:06:44 Zero performed for pressure channel P1 14:10:33 Zero performed for pressure channel P1 14:14:38 --------ALL STOP TIME OUT------ 14:14:39 Final Timeout: patient, procedure, and site verified with staff and physician. All members of the team are in agreement. 14:14:40 Right groin site verified by team. 14:14:43 Fire Safety Assessment: A--An alcohol-based skin anteseptic being used preoperatively., C--Open oxygen or nitrous oxide is being used., D--An ESU, laser, or fiber-optic light is being used. 14:14:46 Physical assessment completed. ASA score P 2 - A patient with mild systemic disease as per Liborio Latham MD. 14:14:50 2) 60-89 Mildly reduced kidney function, and other findings (as for stage 1) point to kidney disease. 14:14:53 Maximum allowable contrast dose (3.7 X eGFR X 0.75)191 ml. 14:14:57 Sedation plan: IV Moderate Sedation Medication:Versed, Fentanyl 14:16:09 Versed 2 mg I.V. was administered by Dora Dominique RN; for sedation; Verbal order read back and verified. 14:16:13 Fentanyl 50 mcg I.V. was administered by Dora Dominique RN; for sedation; Verbal order read back and verified. 14:19:20 Procedure started. 14:19:40 Local anesthetic to right femoral artery with Lidocaine 2% by Liborio Latham MD.INITIAL ACCESS ONLY 14:20:49 A 5 Fr sheath was inserted into the Right Femoral artery 14:22:15 A MULTIPACK Pigtail 5 Fr catheter was advanced over the wire and used for Procedure. 14:22:22 LV gram done using ANDERSON 14:22:24 Injector settings: Ml/sec: 10, Volume: 20, 14:22:51 EF : 60 % 14:22:54 Catheter removed. 14:23:50 A MULTIPACK JL 4.0 5Fr catheter was advanced over the wire and used for Procedure. 14:24:20 LCA angiography performed. 14:24:21 Catheter removed. 14:24:32 A MULTIPACK 3DRC 5Fr catheter was advanced over the wire and used for Procedure. 14:24:36 Baseline sample Acquired. 14:25:22 RCA angiography performed. 14::44 Catheter removed. 14:25:59 GUIDE 5FR EBU 3.5 catheter ([id number]) opened to sterile field. 14:26:01 INFLATOR Merit BasixCompak (LL3219) opened to sterile field. 14:26:01 [place] Verrata Plus pressure wire (55814P) opened to sterile field. 14:26:11 5 Fr EBU 3.5 guide catheter was inserted over the wire 14:28:40 Guide Catheter removed. unable to cannulate vessel. 14:28:49 GUIDE 5FR EBU 3.0 catheter ([id number]) opened to sterile field. 14:29:58 FFR/IFR wire advanced. 14:30:47 Wire advanced across lesion. 14:31:04 mLAD lesion measured at .74 with IFR 14:31:44 Heparin Bolus 4000 units I.V. was administered by Dora Dominique RN; for anticoagulation; verified with Dr. Latham Verbal order read back and verified. 14:31:56 Integrilin (Bolus 2mg/ml) 6.8 ml I.V. was administered by Dora Dominique RN; for antiplatelet therapy; Verbal order read back and verified. 14:32:15 Integrilin (Bolus 2mg/ml) 3.2 ml wasted was administered by Dora Dominique RN; for antiplatelet therapy; Verbal order read back and verified. 14:32:44 Pre PCI Site: [place] mLAD has 70% stenosis. 14:33:05 Place stent Inflation Number: 1 A COBRA RX 2.5 X 15 Stent was prepped and advanced across the Mid LAD . The stent was deployed at 15 LETITIA for 0:00 (min:sec) . 14:33:14 Stent catheter was removed intact over wire. 14:34:49 mLAD lesion measured at 1.04 with IFR 14:34:53 EXOSEAL 5Fr (EX500) opened to sterile field. 14:35:00 Wire removed. 14:35:00 Guide catheter removed. 14:35:13 Sheath removed intact; hemostasis achieved with Exoseal to the Right Femoral artery. 14:35:29 Procedure ended.(Physican Out) :: Fluoroscopy time 05.20 minutes. 14:36:00 Fluoroscopy dose: 701 mGy 14:36:00 Flurop Dose total: 701 14:36:07 Dose Area Product 61292 mGy/cm. 14:36:12 Contrast amount:Isovue 300 85ml. 14:36:14 Maximum allowable dose exceeded? No. 14:36:15 Sharps counted by scrub and verified by R.N. 14:36:18 Post-op/insertion site Right Femoral artery dressed using a 4 x 4 and Tegaderm. 14:36:21 Post-procedure physical assessment completed. ASA score P 2 - A patient with mild systemic disease as per Liborio Latham MD. 14:36:25 Post procedure rhythm: sinus bradycardia 14:36:27 Estimated blood loss: 10 ml 14:36:28 Post procedure instruction explained to patient.Patient verbalizes understanding. 14:36:29 Patient needs reinforcement of post procedure teaching. 14:37:29 Procedure type changed to Cath procedure, Diagnostic procedure, LHC, C w/Coronaries, FFR/IVUS, FFR Initial, Sedation Charges, Moderate Sedation up to 15 minutes, PCI procedure, Coronary Stent, Coronary Stent Initial 14:37:52 Procedure and supply charges have been captured, reviewed, submitted and are correct. 14:37:56 Procedure Complication : No complications 14:37:58 Vital chart was stopped 14:38:00 [facility] Findings: MVD- PCI performed (see procedure note) 14:38:01 Operative report dictated upon procedure completion. 14:38:02 See physician's report for complete and final results. 14:38:04 Report given to PCU. 14:38:07 Patient transfered to PCU with Bed. 14:38:09 Procedure ended. 14:38:09 Full Disclosure recording stopped 14:38:19 ACC-PCI Only Patient was given prescriptions, or instructed by Liborio Latham MD to start/continue the following medications upon discharge: Plavix 14:38:20 End room use (Document Last) 14:38:46 ACT drawn and resulted at 196 seconds. (normal therapeutic range 180-240 seconds). 14:42:00 End room use (Document Last) 14:42:22 End room use (Document Last) Intervention Summary Intervention Notes Time ActionType Lesion and Equipment Action# Pressure Duration Attributes Used 14:33:05 Place stent Mid LAD COBRA RX 1 15 00:00 2.5 X 15 Stent Device Usage Item Name Manufacture Quantity Catalog Hospital Part Current Minimal Lot# / Number Charge Number Stock Stock Serial# Code ACIST Syringe Acist 1 01132 458024 464980 724645 20 (99629) Medical Systems Inc Bag Decanter Microtek 1 2001S 636539 08964 000299 5 (2001S) Medical Inc. ACIST Hand Acist 1 31224 101983 084904 536334 5 Control Medical (01389) Systems Inc ACIST Manifold Acist 1 63393 547844 185329 417719 5 (39946) Medical Systems Inc Tegaderm 4 x 4 3M 1 1626W 165789 732556 990200 5 (1626W) Medline Cath Medline 1 [id number] 925068 13112 937964 5 Pack ([id number]) DIAGNOSTIC Cardinal 1 ZJ7675 535285 56982 439519 30 Multipack 5Fr Health catheter set (IT0644) SHEATH 5FR Terumo 1 TUN481 588081 450141 671013 5 Ashley (AZM282) EMERALD Guide Cardinal 1 502-455 219455 468081 952028 5 Wire (502-455) Health MULTIPACK Cardinal 1 619624 5 Pigtail 5 Fr Health catheter MULTIPACK JL Cardinal 1 796094 5 4.0 5Fr Health catheter MULTIPACK 3DRC Cardinal 1 634241 5 5Fr catheter Health GUIDE 5FR EBU Medtronic 1 [id number] 265794 575801 769705 1 3.5 catheter (SB8QHY15) INFLATOR Merit Merit 1 XR7948 271532 698093 286856 15 ProteoGenixnjFLS Energy (HX0083) [place] Lewiston 1 78745B 203001 153541410 395238 5 Verrata Plus pressure wire (79922G) GUIDE 5FR EBU Medtronic 1 [id number] 656900 710439 378423 1 3.0 catheter (AG5VDW83) COBRA RX 2.5 X Celonova 1 162172 836678802 7796155 0 [id number] 15 stent Biosciences () EXOSEAL 5Fr Cardinal 1 EX500 406639 583711 639595 10 (EX500) Health Signature Audit [place] Stage Time Signature Unsigned Intra-Procedure 01/19/2019 Jaimie Rojas 2:42:00 PM RT(R) Intra-Procedure 01/19/2019 Dora Dominique 2:42:22 PM RN Intra-Procedure 01/19/2019 Liborio Latham 2:42:43 PM MD Signatures Performing Physician : Signature : Liborio Latahm MD Date : Time : Monitor : Jaimie Rojas Signature : RT Date : Time : Nurse : Dora Dominique RN Signature : Date : Time : Monitor : Lu Reich Signature : RT Date : Time : [place] [place] [address] [place] [address]
[~2019-01-19 11:10] MED LIST: BAYER CHEWABLE81 MG PO; PLAVIX75 MG PO
[2019-01-19 11:43] LABS: BASOPHILS 0.9 % (0-2); EOSINOPHILS 2.7 % (0-7); HEMATOCRIT 48.5 % (42.0-54.0); HEMOGLOBIN 16.5 g/dL (13.5-17.5); IMMATURE GRANULOCYTES 0.4 % (0-5); LYMPHOCYTES 25.7 % (15-50); MCH 31.9 pg (26.0-34.0); MCV 93.8 fL (80.0-100.0); MEAN PLATELET VOLUME 9.2 fL (7.4-10.4); MONOCYTES 7.7 % (2-11); NEUTROPHILS 62.6 % (40-80); PLATELET COUNT 206 10x3/uL (130-400); RBC 5.17 10x6/uL (4.20-6.10); RDW 13.4 % (11.5-14.5); WBC 7.7 10x3/uL (4.8-10.8)
[2019-01-19 11:59] LABS: CALC OSMOLALITY 280 mosm/kg (275-300); CALCIUM 8.6 mg/dL (8.5-10.1); CARBON DIOXIDE 24.9 mmol/L (21.0-32.0); CHLORIDE - SERUM 106 mmol/L (98-107); CREATININE - SERUM 1.1 mg/dL (0.6-1.3); GLUCOSE 93 mg/dL (74-106); POTASSIUM - SERUM 4.2 mmol/L (3.5-5.1); SODIUM 141 mmol/L (136-145); UREA NITROGEN 12 mg/dL (7-18); eGFR NON AFRICAN AMERICAN 69 mL/min (90-120)
[2019-01-19 12:00] LABS: INR 1.29 (0.85-1.17); PROTIME 15.5 SECONDS (11.6-15.0)
[2019-01-19 12:01] LABS: APTT 44.4 SECONDS (22.8-39.4)
[2019-01-19 12:14] LABS: ALBUMIN 3.6 g/dL (3.4-5.0); ALKALINE PHOSPHATASE 83 U/L (46-116); ALT (SGPT) 21 U/L (10-68); BILIRUBIN - TOTAL 0.62 mg/dL (0.2-1.3); CKMB 1.1 U/L (0.0-3.6); CREATINE KINASE 53 UL (21-232); MAGNESIUM - SERUM 1.9 mg/dL (1.8-2.4); TROPONIN-I < 0.017 ng/mL (0.000-0.060)
[2019-01-19 13:25] LABS: CHOL - HDL RATIO 4.3 ratio (2.3-4.9); LDL-HDL RATIO 2.8 ratio (1.5-3.5)
[2019-01-19 13:52] LABS: CHOL - HDL RATIO 4.4 ratio (2.3-4.9); LDL-HDL RATIO 2.9 ratio (1.5-3.5)
--- NOTE | 2019-01-19 13:53 | NUR ---
PT LEFT WITH PILOT FUEL ENGINEER
--- NOTE | 2019-01-19 15:00 | NUR ---
PT ARRIVED VIA BED FROM GROUND SUPPORT AGENT. WILL BEGIN ADMISSION PROCESS AND MONITER PT POST CARDIAC CATH. RR NONLABORED ON RA. VSS AND BEING MONITERED. PT HAS A GERRY NOEG CDI NO S/S OF BLEEDING OR HEMATOMA NOTED. PERIPHERAL PULSES INTACT. PT IS TO REMAIN FLAT X4HRS AND VERBALIZED UNDERSTANDING. NS INFUSING VIA L.HAND PIV. NO IMMEDIATE NEEDS AT THIS TIME. AT BEDSIDE. WILL CTM.
--- NOTE | 2019-01-19 15:43 | NUR ---
GERRY NOEG REMAINS CDI. NO S/S OF BLEEDING OR HEMATOMA NOTED. VSS AND STILL BEING MONITERED. PERIPHERAL PULSES INTACT. PT DENIES ANY CURRENT PAIN OR NEEDS. CL IN REACH, AT BEDSIDE WILL CTM.
--- NOTE | 2019-01-19 16:25 | NUR ---
GERRY NOEG REMAINS CDI. PT RESTING QUIETLY LYING FLAT IN BED WITH AT BEDSIDE. NO S/S OF BLEEDING OR HEMATOMA NOTED. VSS. WILL CTM.
--- NOTE | 2019-01-19 18:06 | NUR ---
GERRY NOEG REMAINS CDI. NO S/S OF BLEEDING OR HEMATOMA NOTED. VSS AND STILL BEING MONITERED. PT IS STILL LYING FLAT AND HAS ABOUT AN HR LEFT. AT BEDSIDE. NO CURRENT NEEDS. WILL CTM.
--- NOTE | 2019-01-19 18:45 | NUR ---
STATES PT CAN GO HOME FIRST THING IN THE MORNING LONG NO SYNCOPE EPISODES AND HR STAYS 50 OR ABOVE. WILL PASS ON TO PRIMARY TOMORROW IS A HOLIDAY AND THEY WOULD LIKE TO LEAVE EARLY.
--- NOTE | 2019-01-19 19:21 | NUR ---
RECEIVED BEDSIDE REPORT. PATIENT IS ALERT AND ORIENTED, RESTING COMFORTABLY IN BED. RESPIRATIONS ARE EVEN AND UNLABORED. NO S/S OF DISTRESS. NO C/O PAIN. CALL LIGHT WITHIN REACH. WILL CPOC.
[2019-01-20] VITALS: BP 99/52
[2019-01-20 04:00] VITALS: BP 103/57
[2019-01-20 05:24] LABS: BASOPHILS 0.8 % (0-2); EOSINOPHILS 3.4 % (0-7); HEMATOCRIT 44.6 % (42.0-54.0); HEMOGLOBIN 14.8 g/dL (13.5-17.5); IMMATURE GRANULOCYTES 0.3 % (0-5); LYMPHOCYTES 15.4 % (15-50); MCH 31.4 pg (26.0-34.0); MCHC 33.2 g/dL (31.0-37.0); MCV 94.7 fL (80.0-100.0); MEAN PLATELET VOLUME 9.3 fL (7.4-10.4); MONOCYTES 7.6 % (2-11); NEUTROPHILS 72.5 % (40-80); PLATELET COUNT 194 10x3/uL (130-400); RBC 4.71 10x6/uL (4.20-6.10); RDW 13.4 % (11.5-14.5); WBC 7.4 10x3/uL (4.8-10.8)
[2019-01-20 05:36] LABS: ALBUMIN 2.9 g/dL (3.4-5.0); BILIRUBIN - TOTAL 0.93 mg/dL (0.2-1.3); CALCIUM 8.1 mg/dL (8.5-10.1); CARBON DIOXIDE 26.2 mmol/L (21.0-32.0); CREATININE - SERUM 1.2 mg/dL (0.6-1.3); MAGNESIUM - SERUM 1.9 mg/dL (1.8-2.4); POTASSIUM - SERUM 4.2 mmol/L (3.5-5.1); PROTEIN - SERUM 6.1 g/dL (6.4-8.2)
--- NOTE | 2019-01-20 07:27 | NUR ---
REPORT RECEIVED FROM CHEMICAL COMPOUNDER AND PATIENT CARE ASSUMED. PATIENT LAYING IN BED AWAKE, ALERT AND ORIENTED X 4. PATIENT IS STABLE AND VSS. PATIENT DENIES ANY NEEDS OR PAIN. AT BS. WILL CONTINUE WITH PLAN OF CARE. SR UP X 2 BED IN LOW POSITION AND CALL LIGHT IN REACH.
--- NOTE | 2019-01-20 08:00 | NUR ---
CALLED TO PATIENTS ROOM. PATIENT AND INQUIRING REGARDING DC. PATIENT STATES THAT DR BEASLEY TOLD HIM YESTERDAY HE WOULD BE DC THIS AM AND GAVE HIM A WRITTEN RX FOR PLAVIX. PATIENT AND VERY PLEASANT AND STATING THAT THEY ARE WORRIED ABOUT THE WEATHER AND GETTING BACK TO [place] SAFELY. INFORMED THAT I WILL SPEAK WITH OR ANTHONY . PATIENT DENIED ANY OTHER NEEDS OR CONCERNS.
--- NOTE | 2019-01-20 08:45 | NUR ---
CALLED AND SPOKE WITH GIGI SANTIAGO REGARDING DC. SHE STATED THAT SHE WILL GET IT STARTED.
[2019-01-20 09:25] VITALS: BP 100/61
--- NOTE | 2019-01-20 09:45 | NUR ---
CALLED TO PATIENT ROOM. PATIENT AND INQUIRING ABOUT DC STATUS. INFORMED THAT DC IS BEING PROCESSED.
--- NOTE | 2019-01-20 10:00 | NUR ---
GIGI SANTIAGO CALLED INQUIRING ABOUT PLAVIX FOR DC. INFORMED THAT DR BEASLEY GAVE PATIENT WRITTEN RX FOR PLAVIX YESTERDAY. PAMELA STATES THAT SHE IS COMPLETING DC NOW.
[2019-01-20] MEDS ORDERED: PLAVIX75 MG PO ×2 (10:23→10:26)
--- NOTE | 2019-01-20 10:45 | NUR ---
DC SUMMARY IN COMPUTER BUT NO ORDER IN. CALLED GIGI CASTAÑEDA AND REQUESTING ORDER BE PUT IN. GIGI SANTIAGO STATED SHE WOULD PUT IN.
--- NOTE | 2019-01-20 11:12 | NUR ---
DC ORDER RECEIVED. PATIENT IS STABLE AND VSS. PATIENT DENIES ANY NEEDS OR PAIN. WRITTEN AND VERBAL INSTRUCTIONS GIVEN. VEIRFIED THAT PATIENT HAD WRIITEN RX FOR PLAVIX. PATIENT AND VERBALIZED UNDERSTANDING OF DC INSTRUCTIONS AND PATIENT SIGNED DC INSTRUCTIONS. IV DCD WITHOUT DIFFICULTY WITH ENTIRE CATHETER INTACT. PATIENT TO FRONT DOOR VIA WC AND ACCOMPANIED BY HOSPITAL PERSONNEL TO PRIVATE VEHICLE DRIVEN BY SPOUSE. PATIENT IS DCD HOME FOR SELF CARE.
--- NOTE | 2019-01-21 09:10 | MORECARE ---
CASE MANAGEMENT DISCHARGE SUMMARY PATIENT: CLAU MULLER RAY UNIT: [id number] ADM DATE: 01/19/19 AGE: 78 : 42 SEX: M ROOM/BED: D.2120 AUTHOR: RUTHANNDOC PHYSICIAN: REFERRING PHYSICIAN: ALYCE PARRA MD DATE OF SERVICE: 01/21/19 Discharge Plan Patient Name: CLAU [facility]ULLER [facility] [facility] 1940 Planned Disposition: Home Anticipated Discharge Date: 01/20/19 Discharge Date: 01/20/2019 Expected LOS: 1 Initial Reviewer: [email or web address] Initial Review Date: 01/21/2019 Generated: 01/21/19 10:10 am Coverage Notice Reviewer: [email or web address] Savage Serra Notice Issued Date-Time: 01/19/2019 12:25 Notice Type: Medicare Outpatient Observation Notice Notice Delivered To: Patient Relationship to Patient: Self Sales Development Coordinator Name: Clau Muller Delivery Method: HAND - Hand Delivered Jeniffer Days: Prior Verbal Notification: Recipient Understood Notice: Yes Recipient Signature: Yes Med Rec Note Co-signed by Attending: Coverage Notice Comment: LEE delivered to and signed by patient. Original to patient and placed on chart. Patient Name: CLAU MULLER Page [phone] at 0910 All edits/amendments must be made on the electronic document DICTATION DATE: 01/21/19909 SPIKE MAKER: CHANDU 01/21/19909 RPT#: [id number] DC DATE:01/20/19 STATUS: DIS IN [facility] [address] [place] [address] END OF REPORT
--- NOTE | 2019-01-21 15:28 | OP ---
PATIENT NAME: CLAU SALEH MEDICAL RECORD: [id number] :42 LOCATION:D.OPS ADMISSION DATE: SURGEON: JUSTO BEASLEY MD DATE OF OPERATION: 01/19/2019 PROCEDURES: 1. PTCA and stent to the LAD. 2. IFR of the LAD. 3. Left heart catheterization. 4. Selective coronary angiography. 5. Left ventriculogram. INDICATIONS: Angina and coronary artery disease. DESCRIPTION OF THE PROCEDURE: After informed consent was obtained and after a detailed description of the risks, benefits as well as alternative therapies, the patient elected to proceed with angiogram and heart catheterization, right femoral area was prepped and draped in normal sterile fashion. Right femoral artery was cannulated via modified Seldinger technique with placement of 5-Armenian sheath. All catheters exchanged through this sheath. FINDINGS: Left ventriculogram was performed in standard 30-degree ANDERSON view, reveals good cardiac wall motion, ejection fraction is 60%. SELECTIVE CORONARY ANGIOGRAPHY: 1. Left main is with no significant angiographic disease. 2. Left anterior descending has previously placed stents, these are widely patent; however, just after the last stent, there is what appears to be a 70% stenosis. IFR was abnormal at 0.74. 3. Left circumflex has moderate irregularities but no flow-limiting stenosis. 4. Right coronary has moderate irregularities but no flow-limiting stenosis. PTCA AND STENT OF THE LAD: The stent used 2.5 x 15 mm Cobra. Result was 0% residual stenosis. IFR was normal up to 1.04 after the intervention. OVERALL IMPRESSION: Successful percutaneous transluminal angioplasty and stent to the left anterior descending going from 70% initial stenosis with abnormal IFR to 0% residual stenosis with normalization of the IFR after the intervention. TRANSINT:[id number] Voice Confirmation ID: [id number] DOCUMENT ID: [id number] JUSTO BEASLEY MD at 1528 CC: [id number] DICTATION DATE: 01/19/19 1439 SWEEPER CLEANER INDUSTRIAL: 01/19/19 1851 DEP CLI 01/20/19 [place] [address]
--- NOTE | 2019-01-21 15:28 | EC ---
PATIENT:CLAU SALEH DATE OF SERVICE: 01/19/19 SEX: M MEDICAL RECORD: [id number] DATE OF : 42 LOCATION:D.OPS AGE OF PATIENT: 78 ADMISSION DATE: 01/19/19 REFERRING PHYSICIAN: INTERPRETING PHYSICIAN: JUSTO LATHAM MD ECHOCARDIOGRAM REPORT ECHO CHARGES 4 ECHO COMPLETE Date: 01/19/19 CLINICAL DIAGNOSIS: SYNCOPE HX CAD/STENT ECHOCARDIOGRAPHIC MEASUREMENTS (adult normal given) AC root (d.<3.7cm) 3.7 cm LV Septum d (<1.2 cm> 1.5 cm Valve Excursion 1.6 cm LV Septum (systole) 1.6 cm Left Atria (s.<4.0cm> 3.8 cm LVPW d(<1.2cm) 1.7 cm RV (d.<2.3cm) 3.1 cm LVPW (sytole) 1.8 cm LV diastole(<5.6CM) 4.9 cm MV E-F(>70mm/sec) cm LV systole 3.1 cm LVOT Diameter 2.3 cm MV exc.(>10mm) 1.4 cm Est.ejection fraction (50-75%) % DOPPLER: LVIT cm/sec A 87.0 cm/sec E 74.0 cm/sec LA cm/sec RVSP 14 mmHg LVOT 81 cm/sec AOP1/2T m/s Asc. Ao 120 cm/sec RVOT 66 cm/sec RA cm/sec PA 84 cm/sec AV Gradient Peak 5.74 mmHg AV Mean 3.13 mmHg AV Area 2.8 cm MV Gradient Peak 3.49 mmHg MV Mean 1.00 mmHg MV Area cm COMMENTS: Jig Operator: Kendra VARGAS Plumber Supervisor: 1 Dr. Latham TAPE# PACS Pericardial Effusion N DATE OF SERVICE: 01/19/2019 FINDINGS: 1. Left ventricular chamber size is within normal limits. Left ventricular systolic function is normal. Overall ejection fraction estimated at 55% to 60%. 2. Left atrium, right atrium, and right ventricular chamber sizes are within normal limits. 3. Valvular structures have normal structure and motion. 4. Doppler interrogation reveals no significant valvular insufficiency or stenosis. Pulmonary systolic pressure is normal at 14 mmHg. ECHOCARDIOGRAM REPORT [id number] CLAU SALEH 5. No evidence of pericardial effusion or left ventricular thrombus. TRANSINT:[id number] Voice Confirmation ID: [id number] DOCUMENT ID: [id number] JUSTO LATHAM MD at 1528 CC: [id number] DICTATION DATE: 01/19/19 1441 ELECTROLYTIC DE SCALER: 01/19/19 1834 DEP CLI 01/20/19 [place] [id number] [place] [id number]
== END 2019-01-20 11:22 | disposition home or self-care (01) ==
LOC: OBSVTIME → D.OPS 11:10 → D.ER 11:10 → D.M2 12:40 → D.ER 12:40 → OBSVTIME 13:48 → D.M2 01-20 11:22 → D.OPS 01-20 11:22 → D.M2 01-20 11:22
PROVIDERS: Internal Medicine Interventional Cardiology; ATTEND Family Medicine
DX: I25.119 Atherosclerotic heart disease of native coronary artery with unspecified angina pectoris (principal)